=== PATIENT | female | born 1965 | race Asian ===

== ENCOUNTER → 2018-02-17 | Outpatient (CLI) | payer BC | LOC: MC.RAD 13:30 | DX: Z12.31 Encounter for screening mammogram for malignant neoplasm of breast (principal); N64.89 Other specified disorders of breast ==

== ENCOUNTER → 2018-02-21 | Outpatient (CLI) | payer BC | LOC: MC.RAD 10:25 | DX: N64.89 Other specified disorders of breast (principal) ==

== ENCOUNTER → 2019-02-04 | Outpatient (CLI) | payer BC ==
[~2019-02-04] VITALS: Ht 152.4 cm; Wt 56.9 kg
[~2019-02-04] MED LIST: LIPITOR 10MG10 MG PO; PRILOSEC10 MG PO; VITAMIN C500 MG PO
[2019-02-04 07:48] VITALS: BP 145/95; PULSE 96
[2019-02-04 08:40] VITALS: BP 158/95; PULSE 78
== END ==
LOC: COL.RAD 07:30
DX: R59.1 Generalized enlarged lymph nodes (principal)